=== PATIENT | female | born 1970 | race Hispanic/Latino ===

== ENCOUNTER 2022-07-03 17:36 | Emergency (ER) | payer MEDICAID ==
[~2022-07-03] VITALS: Ht 152.4 cm; Wt 84.8 kg
[2022-07-03 17:59] VITALS: BP 135/79
[2022-07-03] MEDS ORDERED: ACETAMINOPHEN 500 MG TABLET PO ONE (20:00)
[2022-07-03] MEDS ORDERED: IBUP-2070 PO (21:31)
== END 2022-07-03 21:41 | disposition home or self-care (01) ==
LOC: EDH 17:36
DX: S20.211A Contusion of right front wall of thorax, initial encounter (principal); V89.2XXA Person injured in unspecified motor-vehicle accident, traffic, initial encounter; Y93.I9 Activity, other involving external motion; Y92.488 Other paved roadways as the place of occurrence of the external cause; Y99.8 Other external cause status
CPT/HCPCS: 70450; 71045; 72125